=== PATIENT | male | born 1965 | race Two or more races ===

== ENCOUNTER → 2016-05-20 | Outpatient (CLI) | payer OTHER ==
[~2016-05-20] MED LIST: NO MEDICATIONS
--- NOTE | ~2016-05-20 | US6 ---
[facility] A Service of [facility] RADIOLOGY TEXT RESULTS PATIENT: SERENA CALVILLO LOCATION: [facility] : 63 UNIT #: [id number] AGE: [address]: STEVE Maret APRN SEX: M ORDER DR: [id number] [facility] [address] [place], [place] [address] [id number] O MR#: [id number] Acc #: [id number] NAME: SERENA CALVILLO : 1965 SEX: M STUDY DATE/TIME: 05/20/2016 9:03 UNIT: [facility] ROOM: STUDY DESCRIPTION: US Abdominal Limited Attending Physician: Steve Marte Referring Physician: Steve Marte Ordering Physician: Chani Marte Primary Care Physician: Steve Marte MEDICAL IMAGING REPORT This report is preliminary unless electronic signature is present EXAM Right upper quadrant ultrasound 05/20/2016 HISTORY Right upper quadrant abdominal pain for 2 years. FINDINGS The liver demonstrates an increase in echotexture with attenuation of the ultrasound beam characteristic of fatty infiltration. No cystic or solid mass lesions were seen in the liver. The intra and extrahepatic bile ducts are not dilated. The gallbladder contains a single small shadowing gallstone but there is no evidence of gallbladder wall thickening or pericholecystic fluid. The common duct measures 2 mm. The pancreas and right kidney are normal. IMPRESSION 1. Fatty infiltration of the liver. 2. Cholelithiasis. Dictated by... Slava Benz M.D. THIS IS AN ELECTRONICALLY VERIFIED REPORT Slava Benz M.D. at 05/21/2016 8:05 AM YOU/rizwana TD: 05/20/2016 13:26 JOB #: [id number] MEDICAL IMAGING REPORT Page 1 of 1 COPY
== END | disposition home or self-care (01) ==
LOC: CGUS 08:19
DX: R74.0 Nonspecific elevation of levels of transaminase and lactic acid dehydrogenase [LDH] (principal); K76.0 Fatty (change of) liver, not elsewhere classified; K80.20 Calculus of gallbladder without cholecystitis without obstruction
CPT/HCPCS: 76705

== ENCOUNTER → 2016-06-11 | Outpatient (CLI) | payer OTHER ==
--- NOTE | ~2016-06-11 | CT4 ---
[facility] A Service of [facility] RADIOLOGY TEXT RESULTS PATIENT: SERENA CALVILLO LOCATION: [facility] : 64 UNIT #: [id number] AGE: [address]: Chance Eubanks MD SEX: M ORDER DR: [id number] [facility] [address] [place], [place] [address] [id number] O MR#: [id number] Acc #: [id number] NAME: SERENA CALVILLO : 1965 SEX: M STUDY DATE/TIME: 06/11/2016 15:25 [facility]IT[facility] ROOM: STUDY DESCRIPTION: CT Abd and Pelv Wo Cont Attending Physician: Chance Eubanks M.D. Referring Physician: Chance Eubanks M.D. Ordering Physician: Chance Eubanks M.D. Primary Care Physician: Charla Menezes Aprn MEDICAL IMAGING REPORT This report is preliminary unless electronic signature is present EXAM CT abdomen and pelvis without contrast. INDICATION Status post right-sided renal stone extraction, December of 2015. Persistent left-sided flank pain since February of 2016. PROCEDURE Unenhanced CT of the abdomen and pelvis. COMPARISON 03/04/[address] exam was performed with one or more of the following radiation dose reduction techniques: automatic exposure control, adjustment of mA and/or kV according to patient size, and iterative reconstruction. FINDINGS ABDOMEN WITHOUT CONTRAST: Included lung bases are clear. The liver, spleen kidneys adrenal glands, pancreas are unremarkable. There is a small stone in the gallbladder. No evidence for inflammation. Bowel loops nondilated, appendix normal. No radiodense urinary system calculus or hydronephrosis. PELVIS WITHOUT CONTRAST: No radiodense bladder calculus. No pelvic mass or fluid. No aggressive-appearing bone lesion. IMPRESSION No acute findings. There is no radiodense urinary system calculus or hydronephrosis. [facility] A Service of [facility] RADIOLOGY TEXT RESULTS PATIENT: SERENA CALVILLO [facility]ATION: [facility] : 64 UNIT #: [id number] AGE: [address]: Chance Eubanks MD SEX: M ORDER DR: Dictated by... Sotero Mckeon M.D. THIS IS AN ELECTRONICALLY VERIFIED REPORT Sotero Mckeon M.D. at 06/14/2016 8:24 AM EUGENE/william TD: 06/11/2016 18:03 JOB #: [id number] MEDICAL IMAGING REPORT Page 1 of 1 COPY
== END | disposition home or self-care (01) ==
LOC: CCAT 14:59
DX: N20.0 Calculus of kidney (principal)
CPT/HCPCS: 74176

== ENCOUNTER → 2016-07-22 | Outpatient (CLI) | payer OTHER ==
--- NOTE | ~2016-07-22 | CT4 ---
[facility] [place] [facility]Y TEXT RESULTS PATIENT: SERENA CALVILLO LOCATION: [facility] : 63 UNIT #: [id number] AGE: [address]: Chance Eubanks MD SEX: M ORDER DR: [id number] [address] [address] [id number] O MR#: [id number] Acc #: [id number] NAME: SERENA CALVILLO : 1965 SEX: M STUDY DATE/TIME: 07/22/2016 15:22 UNIT: [facility] ROOM: STUDY DESCRIPTION: CT Abd and Pelv Wo Cont Attending Physician: Chance Eubanks M.D. Referring Physician: Chance Eubanks M.D. Ordering Physician: Chance Eubanks M.D. MEDICAL IMAGING REPORT This report is preliminary unless electronic signature is present EXAM CT abdomen and pelvis without contrast INDICATIONS Left-sided abdominal pain for the past 2 years, worse today. TECHNIQUE Unenhanced CT of the abdomen and pelvis. This CT exam was performed with one or more of the following radiation dose reduction techniques: automatic exposure control, adjustment of mA and/or kV according to patient size, and iterative reconstruction. COMPARISON 06/11/2016. FINDINGS Included lung bases are clear. ABDOMEN WITHOUT CONTRAST: Liver and spleen show no acute abnormality. Liver is borderline enlarged at 19.5 cm in length. Kidneys and adrenal glands, pancreas and gallbladder unremarkable. Bowel loops are non-dilated appendix normal. PELVIS WITHOUT CONTRAST: No pelvic mass or fluid. No aggressive appearing bone lesion. IMPRESSION 1. No acute findings in the abdomen or pelvis. 2. Borderline hepatomegaly. [facility] A Service [facility] RADIOLOGY TEXT RESULTS PATIENT: SERENA CALVILLO LOCATION: [facility] : 64 UNIT #: [id number] AGE: [address]: Chance Eubanks MD SEX: M ORDER DR: Dictated by... Sotero E. Mike, M.D. THIS IS AN ELECTRONICALLY VERIFIED REPORT Sotero Mckeon M.D. at 07/22/2016 10:23 PM EEMason/boubacar TD: 07/22/2016 20:24 JOB #: [id number] MEDICAL IMAGING REPORT Page 1 of 1 COPY
== END | disposition home or self-care (01) ==
LOC: CCAT 14:33
DX: N20.0 Calculus of kidney (principal)
CPT/HCPCS: 74176

== ENCOUNTER → 2016-09-03 | Outpatient (CLI) | payer OTHER ==
--- NOTE | ~2016-09-03 | CR181 ---
[facility] A Service of [facility] RADIOLOGY TEXT RESULTS PATIENT: SERENA CALVILLO LOCATION: [facility] : 63 UNIT #: [id number] AGE: [address]: STEVE Marte APRN SEX: M ORDER DR: [id number] [facility] [address] [place], [place] [address] [id number] O MR#: [id number] Acc #: [id number] NAME: SERENA CALVILLO : 1965 SEX: M STUDY DATE/TIME: 09/03/2016 13:38 UNIT: [facility] ROOM: STUDY DESCRIPTION: CR Lumbar Spine 2 or 3 Views Attending Physician: Steve Menezes Aprn Referring Physician: Steve Menezes Aprn Ordering Physician: Steve Menezes Aprn Primary Care Physician: Steve Menezes Aprn MEDICAL IMAGING REPORT This report is preliminary unless electronic signature is present EXAM Lumbar spine series, 09/03/[address] of the abdomen and pelvis without contrast, 07/22/2016 HISTORY Low back pain for the last couple of weeks. FINDINGS Three views of the lumbar spine were obtained. No acute displaced fracture, subluxation or destructive bony mass. Discs are within normal limits. Mild bilateral facet arthritic changes are noted. Pre and paravertebral soft tissues are unremarkable. Dictated by... Imtiaz Douglas M.D. THIS IS AN ELECTRONICALLY VERIFIED REPORT Imtiaz Douglas M.D. at 09/06/2016 7:32 PM CPR/mandy TD: 09/05/2016 11:17 JOB #: [id number] MEDICAL IMAGING REPORT Page 1 of 1 COPY
== END | disposition home or self-care (01) ==
LOC: CRAD 13:14
DX: M54.42 Lumbago with sciatica, left side (principal)
CPT/HCPCS: 72100

== ENCOUNTER → 2016-09-10 | Outpatient (CLI) | payer OTHER ==
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
== END | disposition home or self-care (01) ==
LOC: CMRI 12:49
DX: M54.9 Dorsalgia, unspecified (principal)
CPT/HCPCS: 72141

== ENCOUNTER → 2016-09-17 | Outpatient (CLI) | payer OTHER ==
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
== END | disposition home or self-care (01) ==
LOC: CMRI 17:55
DX: M54.42 Lumbago with sciatica, left side (principal); M51.16 Intervertebral disc disorders with radiculopathy, lumbar region; M48.06 Spinal stenosis, lumbar region; M46.96 Unspecified inflammatory spondylopathy, lumbar region
CPT/HCPCS: 72146; 72148